=== PATIENT | male | born 1965 | race African-American/Black ===

== ENCOUNTER 2016-08-11 10:48 | Emergency (ER) | payer OTHER, MEDICAID ==
[~2016-08-11] VITALS: Ht 185.4 cm; Wt 90.7 kg
[~2016-08-11 10:48] MED LIST: DEPAKOTE ER500 MG PO; MARIJUANA; SEROQUEL300 MG PO
[2016-08-11 10:57] VITALS: BP 100/40
--- NOTE | 2016-08-11 11:06 | NUR ---
PATIENT PRESENTS TO ED WITH LOOSE STOOLS X 4 DAYS PT STATES AFTER EATING SOME CEREAL AND MILK . DENIES N/V/; SKIN IS PINK/WARM/DRY; AAOX4 WITH EVEN AND STEADY GAIT; PT DENIES ANY FEVER, CP, SOB, OR COUGH AT THIS TIME; PATIENT STATES PAIN OF 3/10 AT THIS TIME; VSS; PATIENT POSITIONED FOR COMFORT; HOB ELEVATED; BEDRAILS UP X1; BED DOWN.
--- NOTE | 2016-08-11 11:12 | NUR ---
DR RHODES AT BEDSIDE
--- NOTE | 2016-08-11 11:51 | NUR ---
Patient discharged with v/s stable. Written and verbal after care instructions given and explained. Patient alert, oriented and verbalized understanding of instructions. Ambulatory with steady gait. All questions addressed prior to discharge. ID band removed. Patient advised to follow up with PMD. Rx of CIPRO, AND IMMODIUM given. Patient educated on indication of medication including possible reaction and side effects. Opportunity to ask questions provided and answered.
[2016-08-11 11:52] VITALS: BP 100/40
== END 2016-08-11 11:51 | disposition home or self-care (01) ==
LOC: MED 10:48
DX: R19.7 Diarrhea, unspecified (principal); R10.13 Epigastric pain

== ENCOUNTER 2016-08-12 08:41 | Emergency (ER) | payer OTHER, MEDICAID ==
[~2016-08-12] VITALS: Ht 185.4 cm; Wt 90.7 kg
[2016-08-12 08:44] VITALS: BP 146/75
--- NOTE | 2016-08-12 08:49 | NUR ---
PT AMBULATED TO BED 4
--- NOTE | 2016-08-12 08:51 | NUR ---
51/M PRESENT TO ER C/O DIARRHEA AND BLOOD IN STOOL X5 DAYS. PT STATES HE WAS SEEN IN ER LAST NOC FOR SAME S/SX. PAIN 6/10 CRAMPING NON-RADIATING. AAOx4, PERRLA, BREATHING EVEN AND EFFORTLESS. ERMD NOTIFIED OF PATIENT STATUS.
--- NOTE | 2016-08-12 08:52 | NUR ---
Patient being evaluated by physician at bedside.
[2016-08-12] MEDS ORDERED: DICYCLOMINE HCL LIQUID 20 MG, ALUMINUM HYD/MAG/SIMETHICONE 30 ML, LIDOCAINE VISCOUS 2% ... PO ONE (08:55)
[2016-08-12] MEDS ORDERED: NACL 0.9% 1,000 ML IV ONE (08:55)
[2016-08-12] MEDS ORDERED: ONDANSETRON 4 MG/2 ML VIAL IVP ONE (08:55)
[2016-08-12] MEDS ORDERED: KETOROLAC 30 MG/ML VIAL IVP ONE (08:55)
[2016-08-12 09:56] VITALS: BP 132/72
--- NOTE | 2016-08-12 09:56 | NUR ---
Patient discharged with v/s stable. Written and verbal after care instructions given and explained. Patient alert, oriented and verbalized understanding of instructions. Ambulatory with steady gait. All questions addressed prior to discharge. ID band removed. Patient advised to follow up with PMD. Rx of BENTYL 20MG TABLETS AND ZOFRAN 4MG ODT given. Patient educated on indication of medication including possible reaction and side effects. Opportunity to ask questions provided and answered.
== END 2016-08-12 09:56 | disposition home or self-care (01) ==
LOC: MED 08:45
DX: K52.9 Noninfective gastroenteritis and colitis, unspecified (principal); K92.1 Melena
CPT/HCPCS: 36415; 80053; 83690; 85025; 96361; 96374; 96375; 99284; J1885; J2405; J7030

== ENCOUNTER 2016-08-15 20:11 | Emergency (ER) | payer OTHER, MEDICAID ==
[~2016-08-15] VITALS: Ht 185.4 cm; Wt 90.7 kg
[2016-08-15 20:21] VITALS: BP 113/70
--- NOTE | 2016-08-15 22:00 | NUR ---
TO ER BED 5
--- NOTE | 2016-08-15 22:10 | NUR ---
PT C/O BOTH SIDES OF RIBS HURTING AND BOTH SCLERA OF EYES ARE RED. PT STATES PAIN IS 10/10. PT DENIES N/V/D; SKIN IS PINK/WARM/DRY; AAOX4 WITH EVEN AND STEADY GAIT; LUNGS CLEAR BL; HR EVEN AND REGULAR; PT DENIES ANY FEVER, CP, SOB, OR COUGH AT THIS TIME; VSS; PATIENT POSITIONED FOR COMFORT; HOB ELEVATED; BEDRAILS UP X2; BED DOWN. ER MD MADE AWARE OF PT STATUS.
[2016-08-15] MEDS ORDERED: KETOROLAC 60 MG/2 ML VIAL IM ONE (22:20)
[2016-08-15 23:09] VITALS: BP 115/72
== END 2016-08-15 23:09 | disposition home or self-care (01) ==
LOC: MED 20:11
DX: B30.9 Viral conjunctivitis, unspecified (principal); R07.81 Pleurodynia; Z96.89 Presence of other specified functional implants
CPT/HCPCS: 96372; 99283; J1885

== ENCOUNTER 2016-08-16 07:10 | Emergency (ER) | payer OTHER, MEDICAID ==
[~2016-08-16] VITALS: Ht 185.4 cm; Wt 90.7 kg
--- NOTE | 2016-08-16 07:14 | NUR ---
AMBULATED TO ER BED 3
[2016-08-16 07:18] VITALS: BP 113/81
--- NOTE | 2016-08-16 07:20 | NUR ---
51M BIB SELF C/O BL "FUZZY" VISION X YESTERDAY; PT STATES " I THINK I ATE SOMETHING AND GOT POISON IN MY EYE"; REDNESS NOTED TO BL SCLERA AT THIS TIME, NO DRAINAGE NOTED AT THIS TIME; PT STATES CAN SEE AT THIS TIME, BUT STATES VISION IS "FUZZY"; DENIES PAIN TO EYES AT THIS TIME; PT C/O BL RIB CAGE PAIN, PRESSURE, NON-RADIATING, 6/10 AT THIS TIME; DENIES TRAUMA OR INJURY TO SITES AT THIS TIME; A&OX4, PERRL, BL LUNG SOUNDS CLEAR, RR EVEN/UNLABORED, SKIN IS WARM/DRY/INTACT AT THIS TIME; PT DENIES N/V/D AT THIS TIME; STEADY GAIT; PT STATES WAS SEEN LAST NIGHT AT [facility] FOR RIB PAIN; PT RESTING IN BED W/ HOB ELEVATED AND IN LOWEST POSITION; POSITIONED FOR COMFORT; ER MD MADE AWARE OF STATUS. WILL CONTINUE TO MONITOR.
--- NOTE | 2016-08-16 07:36 | NUR ---
ER MD DR. MORE EVALUATING PT AT BEDSIDE.
[2016-08-16] MEDS ORDERED: GENTAMICIN OP 0.3% 10.5 MG/3.5 GM TUBE OP ONE (07:40)
--- NOTE | 2016-08-16 08:19 | NUR ---
WARM BLANKET PROVIDED TO PT FOR COMFORT; PT APPEARS TO BE RESTING COMFORTABLY IN BED; RR EVEN/UNLABORED; WILL CONTINUE TO MONITOR.
[2016-08-16 09:32] VITALS: BP 112/66
--- NOTE | 2016-08-16 09:32 | NUR ---
Patient discharged with v/s stable. Written and verbal after care instructions given and explained. Patient alert, oriented and verbalized understanding of instructions. Ambulatory with steady gait. All questions addressed prior to discharge. ID band removed. Patient advised to follow up with PMD. Rx of BLEPH-10 10% OPHTHALMIC SOLUTION given. Patient educated on indication of medication including possible reaction and side effects. Opportunity to ask questions provided and answered.
== END 2016-08-16 10:06 | disposition home or self-care (01) ==
LOC: MED 07:10
DX: H11.9 Unspecified disorder of conjunctiva (principal); Z96.89 Presence of other specified functional implants

== ENCOUNTER 2017-01-27 11:42 | Emergency (ER) | payer OTHER ==
[~2017-01-27] VITALS: Ht 185.4 cm; Wt 90.7 kg
[2017-01-27 12:06] VITALS: BP 128/68
--- NOTE | 2017-01-27 12:30 | NUR ---
51/M BIB SELF FOR TESTICULAR PAIN SINCE AM TODAY.DENIES N/V/D; SKIN IS PINK/WARM/DRY; AAOX4 WITH EVEN AND STEADY GAIT; LUNGS CLEAR BL; HR EVEN AND REGULAR; PT DENIES ANY FEVER, CP, SOB, OR COUGH AT THIS TIME; PATIENT STATES PAIN OF 5/10 AT THIS TIME; VSS; PATIENT POSITIONED FOR COMFORT; HOB ELEVATED; BEDRAILS UP X2; BED DOWN. ER MD MADE AWARE OF PT STATUS.
--- NOTE | 2017-01-27 12:31 | NUR ---
PT TAKEN TO US
--- NOTE | 2017-01-27 13:34 | NUR ---
Patient appears to be resting comfortably in bed. BP 131/92 DENIES HEADACHE OR DIZINESS AT THIS TIME,MD MADE AWARE. Respirations even and unlabored.WILL CONTINUE TO MONITOR.
[2017-01-27 13:56] VITALS: BP 131/92
== END 2017-01-27 13:56 | disposition home or self-care (01) ==
LOC: MED 11:42
DX: N50.82 Scrotal pain (principal); Z95.0 Presence of cardiac pacemaker
CPT/HCPCS: 76870; 81002; 99284; Q0092

== ENCOUNTER 2023-05-27 09:44 | Emergency (ER) | payer MEDICARE, MEDICAID ==
[~2023-05-27] VITALS: Ht 185.4 cm; Wt 81.6 kg
[2023-05-27 10:03] VITALS: BP 123/73; PULSE 84; RESP 18; TEMP 97.5; O2SAT 99
== END 2023-05-27 13:08 | disposition home or self-care (01) ==
LOC: MED 09:44
DX: M79.672 Pain in left foot (principal); Z95.0 Presence of cardiac pacemaker
CPT/HCPCS: 73630; 99283